=== PATIENT | female | born 1950 | race Caucasian/White ===

== ENCOUNTER 2016-12-28 19:04 | Emergency (ER) | payer MEDICARE, MEDICAID ==
[~2016-12-28] VITALS: Ht 170.2 cm; Wt 80.0 kg
[~2016-12-28 19:04] MED LIST: AMLO10TA4; GABA-529; LOSA50TA3; OMEP40CA; SIMV40TA2; [UNRECOGNIZED DRUG - CODE] NS
[2016-12-28] MEDS ORDERED: KETOROLAC 60MG/2ML VIAL IM ONE (21:00)
[2016-12-28 22:10] LABS: *AMPHETAMINES SCREEN URINE NEGATIVE (NEGATIVE); *BARBITURATES SCREEN URINE NEGATIVE (NEGATIVE); *BENZODIAZEPINES SCREEN URINE NEGATIVE (NEGATIVE); *COCAINE SCREEN URINE NEGATIVE (NEGATIVE); CANNABINOID URINE SCREEN PRESUMTIVE POSITIVE (NEGATIVE); ECSTASY MDMA SCREEN URINE NEGATIVE (NEGATIVE); METHADONE URINE SCREEN NEGATIVE (NEGATIVE); OPIATES URINE SCREEN NEGATIVE (NEGATIVE); PHENCYCLIDINE URINE SCREEN NEGATIVE (NEGATIVE)
[2016-12-28 23:30] VITALS: BP 120/79
== END 2016-12-29 00:35 | disposition home or self-care (01) ==
LOC: ER 19:05
DX: M79.604 Pain in right leg (principal); Z79.899 Other long term (current) drug therapy; I10 Essential (primary) hypertension; M79.605 Pain in left leg
CPT/HCPCS: 36415; 80305; 96372; 99284; G0482; J1885